=== PATIENT | female | born 1980 | race Two or more races ===

== ENCOUNTER 2016-10-25 13:21 | Outpatient (CLI) | payer OTHER | END 2016-10-25 13:22 | disposition home or self-care (01) | LOC: NC 13:21 | PROVIDERS: ATTEND Obstetrics & Gynecology | DX: O24.410 Gestational diabetes mellitus in pregnancy, diet controlled (principal); Z71.3 Dietary counseling and surveillance ==

== ENCOUNTER 2016-11-29 09:34 | Outpatient (CLI) | payer OTHER | END 2016-11-29 09:35 | disposition home or self-care (01) | LOC: NC 09:34 | PROVIDERS: ATTEND Obstetrics & Gynecology | DX: O24.414 Gestational diabetes mellitus in pregnancy, insulin controlled (principal); O24.419 Gestational diabetes mellitus in pregnancy, unspecified control ==